=== PATIENT | male | born 1950 | race Caucasian/White ===

== ENCOUNTER → 2016-09-11 | Outpatient (CLI) | payer OTHER, BC ==
[~2016-09-11] MED LIST: CARV25TA2 PO; CEPH500C2 PO; DRON400T PO; HYDR12.55 PO; LISI-725 PO; WARF5TAB7 PO
[2016-09-11 17:20] LABS: HEMATOCRIT 40.9 % (42-52); MEAN CELL VOLUME 89.1 fL (80-100); MEAN CORPUSCULAR HEMOGLOBIN 30.1 pg (25-34); MEAN CORPUSCULAR HGB CONC 33.7 g/dl (32-36); MEAN PLATELET VOLUME 11.7 fL (7.4-10.4); PLATELET COUNT 246 K/uL (130-400); RED BLOOD COUNT 4.59 M/uL (4.7-6.1); WHITE BLOOD COUNT 6.75 K/uL (4.8-10.8)
[2016-09-11 17:29] LABS: BLOOD UREA NITROGEN 28 mg/dl (7-18); CARBON DIOXIDE 27 mmol/L (21-32); CHLORIDE 102 mmol/L (98-107); GLUCOSE 97 mg/dl (70-99); POTASSIUM 4.1 mmol/L (3.5-5.1); SODIUM 140 mmol/L (136-145)
== END | disposition home or self-care (01) ==
LOC: C.LAB1850 15:54
PROVIDERS: ATTEND Internal Medicine Cardiovascular Disease
DX: Z01.818 Encounter for other preprocedural examination (principal)

== ENCOUNTER 2016-09-26 13:45 | Day surgery (SDC) | payer OTHER, BC ==
[~2016-09-26] VITALS: Ht 185.4 cm; Wt 118.0 kg
[~2016-09-26 13:45] MED LIST changes: +CEFAZOLIN 2000 MG/60 ML D5W 60 ML IV SCH; -CEPH500C2 PO; +LACTATED RINGER'S 1000ML 1,000 ML IV SCH
[2016-09-26 14:01] VITALS: BP 183/91; PULSE 96; TEMP 36.7; O2SAT 97; Ht 185.4 cm; Wt 118.0 kg
[2016-09-26] MEDS ORDERED: LIDOCAINE HCL 1% 20 ML VIAL ONE (14:42)
[2016-09-26] MEDS ORDERED: BACITRACIN OINT 0.9 GM PKT ONE (14:42)
[2016-09-26] MEDS ORDERED: BACITRACIN 50000 UNIT VIAL ONE (14:42)
--- NOTE | 2016-09-26 14:59 | History & Physical Bridge Note ---
H&P Re-Evaluation Bridge Note: I have examined the patient, reviewed the History & Physical and in the interval since the performance of the History & Physical I have noted the following changes of clinical significance: No changes noted. I reviewed the indications, procedure, risks and alternatives with the patient and his and they understand and he agrees to proceed. Consent obtained.
--- NOTE | 2016-09-26 15:00 | Procedure Note ---
Pre-Mod Sedation Assessment General Date of Moderate Sedation: Sep 26, 2016. Vital Signs: Vital Signs Past 12 Hours Date Time Temp Pulse Resp B/P Pulse Ox O2 Delivery O2 Flow Rate FiO2 09/26/16 14:01 36.7 96 18 183/91 97 Room Air Review Cardiovascular: regular rate, rhythm Abdomen: non tender Lungs: lungs clear Pre-Sedation Airway Assessment Smoking Status: Former Smoker Procedure Planning Contraindications-for Mod Sed: None Yes Notes The planned sedation has been discussed with the patient and consent obtained. I have identified the patient, determined the appropriateness of sedation and have assessed the patient immediately prior to the procedure. All medicine(s) and interventions are by my order.
[2016-09-26] MEDS ORDERED: MIDAZOLAM HCL 5 MG/ML 1 ML VIAL ONE (15:07)
[2016-09-26] MEDS ORDERED: FENTANYL CITRATE INJ 50 MCG/1 ML 2 ML VIAL ONE ×3 (15:07→15:56)
[2016-09-26] MEDS ORDERED: MIDAZOLAM HCL 1 MG/ML 2ML VIAL ONE ×2 (15:41→15:55)
--- NOTE | 2016-09-26 16:11 | Procedure Note ---
Post-Mod Sedation Assessment General Date of Moderate Sedation Sep 26, 2016. Vital Signs: Vital Signs Past 12 Hours Date Time Temp Pulse Resp B/P Pulse Ox O2 Delivery O2 Flow Rate FiO2 09/26/16 14:01 36.7 96 18 183/91 97 Room Air Review - Discharge Criteria Vital Signs Stable: Yes Alert/Oriented/Conversant: Yes Returned to Baseline Mental St: Yes Nausea Absent/Minimal: Yes Pain/Discomfort/Absent/Minimal: Yes Normal/Baseline Respirations: Yes Active Bleeding?: No
--- NOTE | 2016-09-26 16:13 | Cardiology Procedure Brief Nt ---
Preliminary Cardiology Note Procedure Date Sep 26, 2016. Pre-Procedure Diagnosis right ventricular lead dislodgment Post-Procedure Diagnosis acute rise in right ventricular pacing threshold Procedure(s) Performed Repositioning of right ventricular lead Mechanical Meter Tester Dr. Walter Hair Designer(s) none Estimated Blood Loss 30 cc Preliminary Findings Right ventricular lead appeared to be in good anatomic location initially and fixed in position with the screw, it was repositioned with good measurements at a new site. Recommendations Monitor briefly and discharged Specimens None Anesthesia local with sedation Complication(s) None Disposition MTU
[2016-09-26] MEDS ORDERED: KETOROLAC TROMETHAMINE 10 MG TAB PO PRN (16:15)
[2016-09-26] MEDS ORDERED: ACETAMINOPHEN 325 MG TAB PO PRN (16:15)
[2016-09-26 16:25] VITALS: BP 137/72; PULSE 69; TEMP 36.5; O2SAT 94
[2016-09-26 17:10] VITALS: BP 124/67; PULSE 68; TEMP 36.4; O2SAT 97
[2016-09-26] MEDS ORDERED: CEPH500C2 PO (17:14)
--- NOTE | 2016-09-26 17:16 | Discharge Instructions ---
Discharge Instructions Date of Service Sep 26, 2016. Admission Reason for Admission: Rv lead dislodgment Discharge Discharge Diagnosis / Problem: right ventricular lead reposition Discharge Goals Goal(s): Improve disease control Activity Recommendations Activity Limitations: resume your previous activity . Instructions / Follow-Up Instructions / Follow-Up ACTIVITY RECOMMENDATIONS: * Do not raise affected arm over head for 2 weeks. SPECIAL CARE INSTRUCTIONS: * If bleeding occurs, apply direct pressure to area for 5 minutes. * Call your doctor if you have severe pain, fever, drainage or bleeding at site. * Keep dressing on and dry. * Keep any scheduled doctor's appointment. * Implant Card - hand held device with website information given. SKIN IRRITATION: * You may experience some redness and/or swelling in the area where radiation was administered. If any skin irritation occurs, please contact your family physician. FOLLOW UP VISIT: Dr. Walter 09/27/2016, 10:15 AM. Current Hospital Diet Patient's current hospital diet: AHA Diet (Heart Healthy) Discharge Diet Recommended Diet: AHA Diet (Heart Healthy) Pending Studies Studies pending at discharge: no Medical Emergencies . Who to Call and When: Medical Emergencies: If at any time you feel your situation is an emergency, please call 911 immediately. . Non-Emergent Contact Non-Emergency issues call your: Primary Care Provider . . "Provider Documentation" section prepared by Scooter Walter. VTE Core Measure Inpt VTE Proph given/why not?: Warfarin (Coumadin)
--- NOTE | 2016-09-26 17:44 | OPERATIVE REPORT ---
DATE OF OPERATION: 09/26/2016 AMBULATORY OPERATIVE REPORT PREOPERATIVE DIAGNOSIS: Ventricular lead dislodgement. POSTOPERATIVE DIAGNOSIS: Acute rise in ventricular lead pacing threshold. SURGEON: Scooter Walter MD ANESTHESIA: Local with sedation. HISTORY OF PRESENT ILLNESS: This is a 65-year-old male with a history of atrial fibrillation and nonischemic cardiomyopathy. He has had several ablations performed for atrial fibrillation and also has a cardiomyopathy, which may have initially been due to rapid atrial fibrillation. More recently, he had worsening of his left ventricular function, possibly related to left bundle-branch block and frequent premature ventricular beats. He therefore had a biventricular ICD implanted on 05/16/2016. The procedure appeared to go well and leads appeared to be in good position; however in followup in the office, his right ventricular pacing threshold was quite elevated, now it is 3.5 volts at 1 millisecond. Lead impedances are stable, although R waves have dropped off somewhat. He is therefore brought to the laboratory for lead repositioning. DESCRIPTION OF PROCEDURE: After obtaining informed consent for the procedure, he was brought to the laboratory on the afternoon of 09/26/2016 being n.p.o. after midnight. He was identified in the laboratory, prepped and draped in standard sterile manner for a left-sided device revision. The left prepectoral region was anesthetized with 1% lidocaine local anesthetic and a 6-cm incision was made through the old implant scar and carried down to the ICD generator. The generator was dissected free of tissue and explanted. It is a [employer]onic Amplia, model #[id number], implanted 05/16/2016. Serial #[id number]. The atrial lead characteristics and the left ventricular lead characteristics were both checked through the device and were excellent; therefore, there were not disconnected from the device. The right ventricular ICD lead was removed from the device, it is a Medtronic, model #6947M, serial #[id number], implanted 05/16/2016. This lead was disconnected from the pectoralis fascia by cutting the sutures holding it in place, gentle traction was placed on the lead and it moved freely in the superior vena cava and appeared to be fixed in the right ventricular apex in good position anatomically. The screw was therefore withdrawn and the lead was withdrawn back into the right atrium. Using a curved stylette, the ventricular lead was advanced back through the right ventricular outflow tract and then using another straight stylet, was repositioned in the right ventricular apex. This position was somewhat different than the original position. The screw was extended fixing the lead in position. The pacing threshold was evaluated in bipolar configuration at a pulse was width of 0.5 milliseconds, the pacing threshold was 0.7 volts with a current of 0.8 milliamp, 5-volt lead impedance was 874 ohms and R waves were sensed at 13.7 millivolts. Diaphragmatic pacing was not present with a 10-volt bipolar output. Once the lead was in position, it was attached to the anterior pectoralis fascia using 2 sutures of 2-0 silk around the lead collar. The lead was connected back to the ICD, the bacitracin-soaked sponge had been placed in the pocket, this was removed and the ICD was placed in the pocket with the leads coiled beneath it. The incision was closed with a running double subcutaneous closure of 3-0 Vicryl followed by running subcuticular skin closure of 4-0 Vicryl. Bacitracin ointment was placed on incision and a pressure dressing applied. The patient tolerated the procedure well, there were no complications and estimated blood loss was 30 mL. The patient was transferred to the ambulatory unit for brief monitoring and planned discharge. Details of the implanted device and ventricular leads are noted above. The atrial and left ventricular lead were not removed from the device. [id number]
[2016-09-26 17:55] VITALS: BP 133/72; PULSE 61; TEMP 36.4; O2SAT 96
[2016-09-26 18:20] VITALS: BP 133/72; PULSE 70; TEMP 36.3; O2SAT 99
== END 2016-09-26 18:32 | disposition home or self-care (01) ==
LOC: C.ACU 13:45
PROVIDERS: ATTEND Internal Medicine Cardiovascular Disease
DX: T82.120A Displacement of cardiac electrode, initial encounter (principal); Y83.1 Surgical operation with implant of artificial internal device as the cause of abnormal reaction of the patient, or of later complication, without mention of misadventure at the time of the procedure; I48.91 Unspecified atrial fibrillation; I42.9 Cardiomyopathy, unspecified; I49.3 Ventricular premature depolarization; G47.33 Obstructive sleep apnea (adult) (pediatric); Z88.2 Allergy status to sulfonamides; Z83.3 Family history of diabetes mellitus; Z82.49 Family history of ischemic heart disease and other diseases of the circulatory system

== ENCOUNTER → 2016-12-05 | Outpatient (CLI) | payer OTHER, BC ==
[~2016-12-05] MED LIST changes: -CEFAZOLIN 2000 MG/60 ML D5W 60 ML IV SCH; +CEPH500C2 PO; -LACTATED RINGER'S 1000ML 1,000 ML IV SCH
[2016-12-05 11:57] LABS: HEMATOCRIT 39.8 % (42-52); MEAN CELL VOLUME 90.7 fL (80-100); MEAN CORPUSCULAR HEMOGLOBIN 29.8 pg (25-34); MEAN CORPUSCULAR HGB CONC 32.9 g/dl (32-36); MEAN PLATELET VOLUME 11.5 fL (7.4-10.4); PLATELET COUNT 208 K/uL (130-400); RED BLOOD COUNT 4.39 M/uL (4.7-6.1); WHITE BLOOD COUNT 5.55 K/uL (4.8-10.8)
[2016-12-05 12:10] LABS: ALT/SGPT 23 U/L (12-78); AST/SGOT 14 U/L (15-37); BLOOD UREA NITROGEN 23 mg/dl (7-18); BUN/CREATININE RATIO 23.7 (10-20); CALCIUM 8.5 mg/dl (8.5-10.1); CARBON DIOXIDE 27 mmol/L (21-32); CHLORIDE 107 mmol/L (98-107); CREATININE 0.95 mg/dl (0.60-1.40); GLUCOSE 94 mg/dl (70-99); SODIUM 143 mmol/L (136-145)
[2016-12-05 12:20] LABS: THYROID STIMULATING HORMONE 0.958 uIu/ml (0.300-4.500)
== END | disposition home or self-care (01) ==
LOC: C.LAB1850 10:46
PROVIDERS: ATTEND Internal Medicine Cardiovascular Disease
DX: I48.91 Unspecified atrial fibrillation (principal); I44.7 Left bundle-branch block, unspecified; I42.8 Other cardiomyopathies; Z79.01 Long term (current) use of anticoagulants; I49.3 Ventricular premature depolarization; I10 Essential (primary) hypertension

== ENCOUNTER → 2017-07-16 | Outpatient (CLI) | payer OTHER, BC ==
[~2017-07-16] MED LIST changes: -CEPH500C2 PO
[2017-07-16 09:54] LABS: HEMATOCRIT 42.7 % (42-52); HEMOGLOBIN 14.4 g/dL (14.0-18.0); MEAN CELL VOLUME 89.3 fL (80-100); MEAN CORPUSCULAR HEMOGLOBIN 30.1 pg (25-34); MEAN CORPUSCULAR HGB CONC 33.7 g/dl (32-36); MEAN PLATELET VOLUME 11.5 fL (7.4-10.4); PLATELET COUNT 248 K/uL (130-400); RED CELL DISTRIBUTION WIDTH CV 13.6 % (11.5-14.5); RED CELL DISTRIBUTION WIDTH SD 44.9 fL (36.4-46.3); WHITE BLOOD COUNT 5.72 K/uL (4.8-10.8)
[2017-07-16 10:08] LABS: ALT/SGPT 28 U/L (12-78); AST/SGOT 14 U/L (15-37); BLOOD UREA NITROGEN 27 mg/dl (7-18); CALCIUM 8.8 mg/dl (8.5-10.1); CARBON DIOXIDE 27 mmol/L (21-32); CREATININE 1.02 mg/dl (0.60-1.40); GLUCOSE 94 mg/dl (70-99); POTASSIUM 3.7 mmol/L (3.5-5.1); SODIUM 137 mmol/L (136-145)
[2017-07-16 10:19] LABS: CHOLESTEROL 185 mg/dl (0-200); LDL CHOLESTEROL CALCULATED 117 mg/dl
== END | disposition home or self-care (01) ==
LOC: C.LAB1850 07:38
PROVIDERS: ATTEND Internal Medicine Cardiovascular Disease
DX: I48.91 Unspecified atrial fibrillation (principal); I44.7 Left bundle-branch block, unspecified; I42.8 Other cardiomyopathies; Z79.01 Long term (current) use of anticoagulants; I10 Essential (primary) hypertension